=== PATIENT | female | born 1995 | race Caucasian/White ===

== ENCOUNTER 2020-08-18 14:00 | Emergency (ER) | payer MEDICAID, OTHER ==
[~2020-08-18] VITALS: Ht 157.4 cm; Wt 70.9 kg
[~2020-08-18 14:00] MED LIST: AMOX500C2 PO
[2020-08-18 14:10] VITALS: BP 139/90
[2020-08-18] MEDS ORDERED: IBUP-1780 PO (14:33)
[2020-08-18] MEDS ORDERED: TRM50T PO (14:33)
--- NOTE | 2020-08-18 14:33 | ED GI ---
General Chief Complaint: Abdominal/GI Problems Stated Complaint: SUPRAPUBIC PAIN History of Present Illness Date Seen by Provider: Aug 18, 2020 Time Seen by Provider: 14:20 Initial Comments 25-year-old female presents from the outpatient clinic where she had an ultrasound this morning for right lower pelvic pain. The ultrasound revealed a hemorrhagic cyst. Patient has been on an Implanon contraceptive device for the past several years, her last child born 3 years ago. Patient admits pain began after having sex this morning. She was not having any pain prior to intercourse. Denies suspicion of . Not having any upper abdominal pain, nausea vomiting, constipation or diarrhea. Denies any pain with urination, blood in her urine or frequency of urination. No recent illness, fever or chills. In the clinic was given a shot of Toradol and on arrival in the ER she says her pain is much better. Allergies and Home Medications Allergies Coded Allergies: No Known Drug Allergies (Unverified , 06/20/10) Home Medications Amoxicillin 500 Mg Capsule, 1 EACH PO TID Prescribed by: DENVER PRINCE on 06/20/10 1149 Ibuprofen 800 Mg Tablet, 800 MG PO Q8H PRN for PAIN Prescribed by: PEACE PAGAN on 08/18/20 1433 Tramadol HCl 50 Mg Tablet, 50 MG PO Q6H PRN for PAIN Prescribed by: PEACE PAGAN on 08/18/20 1433 Patient Home Medication List Home Medication List Reviewed: Yes Review of Systems Review of Systems Constitutional: No chills, No dizziness, No fever, No malaise, No weakness Respiratory: No Symptoms Reported Cardiovascular: No Symptoms Reported Gastrointestinal: See HPI, Abdominal Pain; Denies Constipated, Denies Diarrhea, Denies Nausea, Denies Poor Appetite, Denies Vomiting Genitourinary: See HPI; Denies Discharge, Denies Frequency, Denies Flank Pain, Denies Hematuria; Pain; Denies Urgency Musculoskeletal: No back pain, No joint pain Skin: No change in color, No rash Past Yoddqcg-Ajyoty-Ilcyhp Hx Past Med/Social Hx: Reviewed Nursing Past Med/Soc Hx Physical Exam Vital Signs Vital Signs - First Documented 08/18/20 14:10 Temp 36.9 Pulse 67 Resp 15 B/P (MAP) 139/90 (106) Pulse Ox 100 O2 Delivery Room Air Capillary Refill : Height/Weight/BMI Height: '" Weight: lbs. oz. kg; BMI Method: General Appearance: WD/WN, no apparent distress Respiratory: chest non-tender, lungs clear Cardiovascular: regular rate, rhythm, no edema Gastrointestinal: normal bowel sounds, non tender, soft, no organomegaly, no pulsatile mass Extremities: non-tender, normal inspection Progress/Results/Core Measures Results/Orders Lab Results Laboratory Tests Test 08/18/20 14:19 Range/Units Human Chorionic Gonadotropin, Quant < 5 <5 MIU/ML My Orders Orders - ROVENSTINE,PEACE L DO Ed Iv/Invasive Line Start (08/18/20 14:04) Hcg,Quantitative (08/18/20 14:04) Vital Signs/I&O 08/18/20 14:10 Temp 36.9 Pulse 67 Resp 15 B/P (MAP) 139/90 (106) Pulse Ox 100 O2 Delivery Room Air Diagnostic Imaging Diagonstic Imaging: Ultrasound (review of pelvic US results from today: "Complex R ovarian lesion (2.6cm) likely complex hemorrhagic cyst w some fluid and hemorrhage within dependent R adnexa") Departure Impression Primary Impression: Hemorrhagic cyst of right ovary Disposition: HOME, SELF-CARE Condition: Improved Departure-Patient Inst. Decision time for Depature: 14:31 Referrals: SELF,ZEYNEP RAMOS (PCP/Family) Primary Care Physician Patient Instructions: Ovarian Cyst ED Add. Discharge Instructions: Call your [facility], Dr Tolbert to make a follow up appointment regarding your hemorrhagic cyst. Take Ibuprofen three times daily as needed for pain. Take Ultram as needed for pain unrelieved by ibuprofen. All discharge instructions reviewed with patient and/or family. Voiced understanding. Scripts Tramadol HCl (Tramadol HCl) 50 Mg Tablet 50 MG PO Q6H PRN for PAIN for 3 Days, #10 TAB 0 Refills Prov: ROVENSTINE,PEACE L DO 08/18/20 Ibuprofen (Ibuprofen) 800 Mg Tablet 800 MG PO Q8H PRN for PAIN, #30 TAB 0 Refills Prov: ROVENSTINE,PEACE L DO 08/18/20 ROVENSTINE,PEACE L DO Aug 18, 2020 14:33
== END 2020-08-18 15:24 | disposition home or self-care (01) ==
LOC: EDUNIT# 14:00 → ER FS 14:03
DX: N83.201 Unspecified ovarian cyst, right side (principal); Z97.5 Presence of (intrauterine) contraceptive device
CPT/HCPCS: 36415; 84702; 99282